=== PATIENT | male | born 1985 | race Hispanic/Latino ===

== ENCOUNTER 2022-05-05 15:33 | Emergency (ER) | payer OTHER ==
[~2022-05-05] VITALS: Ht 188 cm; Wt 122.5 kg
[2022-05-05 16:11] VITALS: BP 141/98
[2022-05-05] MEDS ORDERED: BENZ-39 PO (18:14)
== END 2022-05-05 18:28 | disposition home or self-care (01) ==
LOC: EDH 15:33
DX: J06.9 Acute upper respiratory infection, unspecified (principal); Z20.822 Contact with and (suspected) exposure to COVID-19; Z79.899 Other long term (current) drug therapy
CPT/HCPCS: 99283; 87635; 87880; 87804 ×2; C9803